=== PATIENT | female | born 1980 | race Caucasian/White ===

== ENCOUNTER 2016-12-03 19:18 | Emergency (ER) | payer BC ==
[~2016-12-03] VITALS: Ht 162.6 cm; Wt 70.8 kg
[2016-12-03 20:00] VITALS: BP 132/82
[2016-12-03] MEDS ORDERED: Bacitracin Oint UD TOPIC ONE (20:30)
[2016-12-03] MEDS ORDERED: TdaP Vaccine 0.5ml Syr IM ONE (20:30)
--- NOTE | 2016-12-03 20:51 | Emergency Room Report ---
History of Present Illness General Chief Complaint: Animal Bite Source: Patient Present Illness HPI 36-year-old female presents to emergency Department complaining of dog bite to the posterior right calf approximately 40 minutes ago. Patient states she was running and her neighbors dog got out of the yard and bit her in the calf. Patient denies bleeding at this time she states that skin didn't break and there is mild bruising and tenderness patient rates her pain as 5/10 in severity it is localized to the posterior right calf. Patient does not know when her last tetanus vaccinations was. Patient states that the dog is vaccinated however is due for some of its vaccinations. She denies taking blood thinning medications or history of immunocompromise. Denies numbness tingling or loss of sensation or gross motor movements of the extremities, incontinence of bowel or bladder. Denies CP, Palpitations, LOC, AMS, dizziness, Changes in Vision, Sensation, paresthesias, or a sudden severe headache. Allergies: Uncoded Allergies: NOVACAINE (Allergy, Unknown, 12/03/16) Patient History Past Medical History: see triage record Past Surgical History: none, other Pertinent Family History: none Last Menstrual Period: 11/21/16 Now: No Reviewed Nursing Documentation: PMH: Agreed, PSxH: Agreed Nursing Documentation-PMH Past Medical History: No Stated History Review of Systems All Other Systems: negative except mentioned in HPI Physical Exam Vital Signs Date Time Temp Pulse Resp B/P Pulse Ox O2 Delivery O2 Flow Rate FiO2 12/03/16 19:40 98.1 70 16 132/82 95 Room Air Sp02 EP Interpretation: reviewed, normal General Appearance: no apparent distress, alert, GCS 15, non-toxic Head: normocephalic, atraumatic Eyes: bilateral eye PERRL, bilateral eye normal inspection ENT: hearing grossly normal, normal pharynx, no angioedema, normal voice Neck: full range of motion, supple/symm/no masses Respiratory: lungs clear, normal breath sounds, speaking full sentences Cardiovascular #1: regular rate, rhythm, no edema Cardiovascular #2: 2+ dorsalis pedis (R), 2+ dorsalis pedis (L) Musculoskeletal: back normal, gait/station normal, normal range of motion, tender - TTP and mild bruising noted to superficial bite to the posterior right calf, size is 1.5cm Neurologic: alert, oriented x3, responsive, motor strength/tone normal, sensory intact, speech normal Psychiatric: judgement/insight normal, memory normal, mood/affect normal, no suicidal/homicidal ideation Skin: normal color, no rash, warm/dry, well hydrated, other - TTP and mild bruising noted to superficial bite to the posterior right calf, size is 1.5cm Lymphatic: no adenopathy Medical Decision Making PA Attestation Dr. Camejo is my supervising Physician whom patient management has been discussed with. Diagnostic Impression: Primary Impression: Dog bite of calf Qualified Codes: S81.851A - Open bite, right lower leg, initial encounter; W54.0XXA - Bitten by dog, initial encounter ER Course Pt. presents to the ED c/o dog bite 40 minutes ago, tetanus not up to date, rabies on animal is UTD Ddx considered but are not limited to Cellulitis, rabies, fracture, neurovascular compromise of extremity. Vital signs: are WNL, pt. is afebrile H&PE are most consistent with dog bite, mild bruising no infection noted at this time. ORDERS: none required at this time, the diagnosis is clinical ED INTERVENTIONS: -Tetanus vaccination is administered. -Wound was irrigated with pressure irrigation NS. - bacitracin and sterile dressing is applied. DISCHARGE: At this time pt. is stable for d/c to home. Will provide printed patient care instructions, and any necessary prescriptions. Care plan and follow up instructions have been discussed with the patient prior to discharge. * Augmentin TID x 7 days. Last Vital Signs Date Time Temp Pulse Resp B/P Pulse Ox O2 Delivery O2 Flow Rate FiO2 12/03/16 19:40 98.1 70 16 132/82 95 Room Air Disposition: HOME, SELF-CARE Condition: Stable Scripts Ibuprofen* (MOTRIN*) 600 Mg Tablet 600 MG ORAL THREE TIMES A DAY, #30 TAB 0 Refills Prov: Martha Chavira P.A. 12/03/16 Amoxicillin/Potassium Clav 875-125* (AUGMENTIN 875-125 TABLET*) 1 Each Tablet 1 TAB ORAL TWICE A DAY for 7 Days, #14 TAB Prov: Martha Chavira P.A. 12/03/16 Patient Instructions: Animal Bite Additional Instructions: Take medications as directed. Follow up with PCP in 3-5 days Return sooner to ED if new symptoms occur, or current symptoms become worse. - Please note that this Emergency Department Report was dictated using [employer] supervisor technology software, occasionally this can lead to erroneous entry secondary to interpretation by the dictation equipment. Martha Chavira Dec 03, 2016 20:51
[2016-12-03] MEDS ORDERED: AUGMENTIN 875-1 EAC1 ORAL (20:54)
[2016-12-03] MEDS ORDERED: IBUPROFEN600 MG ORAL (20:54)
[2016-12-03 21:10] VITALS: BP 135/84
== END 2016-12-03 23:10 | disposition home or self-care (01) ==
LOC: EMR 19:53
DX: S81.851A Open bite, right lower leg, initial encounter (principal); W54.0XXA Bitten by dog, initial encounter; Y92.9 Unspecified place or not applicable; Z23 Encounter for immunization
CPT/HCPCS: 90471; 90715; 99284